=== PATIENT | male | born 1975 | race Two or more races ===

== ENCOUNTER 2020-08-17 04:49 | Day surgery (SDC) | payer BC ==
[2020-08-14 14:11] VITALS: BMI 37.5
[2020-08-17 09:29] VITALS: BP 162/102; PULSE 67; TEMP 98.6
== END 2020-08-17 09:25 | disposition home or self-care (01) ==
LOC: JASU-ENDO 04:49
PROVIDERS: ATTEND Internal Medicine Gastroenterology
PROC: 0DJD8ZZ Inspection of Lower Intestinal Tract, Via Natural or Artificial Opening Endoscopic (ICD-10-PCS; principal; 2020-08-17 08:00)
DX: Z12.11 Encounter for screening for malignant neoplasm of colon (principal); Z80.0 Family history of malignant neoplasm of digestive organs; K57.30 Diverticulosis of large intestine without perforation or abscess without bleeding; K64.8 Other hemorrhoids

== ENCOUNTER 2022-09-07 07:03 | Day surgery (SDC) | payer OTHER ==
[2022-08-30 10:12] VITALS: BMI 36.6
[2022-09-07] MEDS ORDERED: PROPOFOL 20 ML ONE (08:30)
[2022-09-07] MEDS ORDERED: MIDAZOLAM HCL 2 MG/2 ML SINGLE DOSE VIAL ONE (08:30)
[2022-09-07] MEDS ORDERED: DEXAMETHASONE SOD PHOSPHATE 4 MG/1 ML VIAL ONE (08:50)
[2022-09-07] MEDS ORDERED: ONDANSETRON 4 MG/2 ML VIAL ONE (08:50)
[2022-09-07] MEDS ORDERED: KETOROLAC TROMETHAMINE 30 MG/1 ML VIAL ONE (08:53)
[2022-09-07 09:26] VITALS: RESP 18; TEMP 97.6
[2022-09-07 09:33] VITALS: BP 126/87; PULSE 71
== END 2022-09-07 09:39 | disposition home or self-care (01) ==
LOC: FASU 07:03
PROVIDERS: ATTEND Orthopaedic Surgery Hand Surgery
PROC: 0LB70ZZ Excision of Right Hand Tendon, Open Approach (ICD-10-PCS; principal; 2022-09-07 08:49)
DX: M67.441 Ganglion, right hand (principal)
CPT/HCPCS: 88305-TC